=== PATIENT | male | born 1950 | race Caucasian/White ===

== ENCOUNTER 2016-06-20 13:23 | Day surgery (SDC) | payer OTHER ==
[2016-06-20] MEDS ORDERED: fentaNYL 100 MCG/2 ML INJ IVP ONE (13:27)
[2016-06-20] MEDS ORDERED: MIDAZOLAM 2 MG/2 ML VIAL IVP ONE (13:27)
[2016-06-20] MEDS ORDERED: BENZOCAINE UNIT DOSE SPRAY HURRICAINE MM ONE (13:27)
[2016-06-20] MEDS ORDERED: NS 500 ML IV ONE (13:27)
[2016-06-20] MEDS ORDERED: PROPOFOL 200 MG/20 ML VIAL IVP ONE (13:27)
[2016-06-20 14:04] LABS: % IMMATURE GRANULYOCYTES 0.3 % (0.0-1.1); ABSOLUTE IMMATURE GRANULOCYTES 0.04 10^3/uL (0.00-0.10); ADD DIFF? NO; ADD MORPH? NO; ADD SCAN? NO; ATYPICAL LYMPHOCYTE FLAG 10 (0-99); FRAGMENT RBC FLAG 0 (0-99); HEMATOCRIT 51.7 % (40.0-51.0); LEFT SHIFT FLG 0 (0-99); LIPEMIA HEMOLYSIS FLAG 90 (0-99); MEAN CELL HEMOGLOBIN CONCENTR. 36.8 g/dL (32.4-36.7); MEAN CELL VOLUME 84.5 fL (81.5-99.8); MEAN PLATELET VOLUME 9.7 fL (8.7-11.7); PLATELET CLUMPS FLAG 10 (0-99); PLATELET COUNT 270 10^3/uL (150-400); RED BLOOD CELL COUNT 6.12 10^6/uL (4.40-6.38); RED CELL DISTRIBUTION WIDTH 13.2 % (11.5-15.2)
[2016-06-20 14:13] LABS: INR 1.15 (0.83-1.16); PROTIME(PATIENT) 14.6 SEC (12.0-15.0)
[2016-06-20 14:18] LABS: ANION GAP 14 mEq/L (8-16); CALCIUM 10.3 mg/dL (8.5-10.4); CARBON DIOXIDE 26 mEq/l (22-31); CHLORIDE 104 mEq/L (97-110); CREATININE 1.4 mg/dL (0.7-1.3); GLOMERULAR FILTRATION RATE 51; GLUCOSE 104 mg/dL (70-100); MAGNESIUM 2.4 mg/dL (1.6-2.3); POTASSIUM 4.2 mEq/L (3.5-5.2); SODIUM 144 mEq/L (134-144)
[2016-06-20 14:30] LABS: TROPONIN I < 0.012 ng/mL (0-0.034)
[2016-06-20] MEDS ORDERED: ATROPINE SULFATE 1 MG/10 ML SYR ONE (14:35)
[2016-06-20] MEDS ORDERED: LIDOCAINE 2% 100 MG/5 ML SYR ONE (15:14)
[2016-06-20] MEDS ORDERED: fentaNYL 100 MCG/2 ML INJ ONE (15:14)
[2016-06-20] MEDS ORDERED: PROPOFOL/EMULSION 500 MG/50 ML BOTTLE IV ONE (15:14)
--- NOTE | 2016-06-20 15:53 | CPEKG ---
Heart Rate: 83 RR Interval: 723 P-R Interval: 144 QRSD Interval: 92 QT Interval: 364 QTC Interval: 428 P Empire: 72 QRS Empire: 87 T Wave Empire: -2 EKG Severity - BORDERLINE ECG - EKG Impression: SINUS RHYTHM EKG Impression: PROBABLE LEFT ATRIAL ABNORMALITY EKG Impression: CONSIDER RIGHT VENTRICULAR HYPERTROPHY Electronically Signed By: Deng Pretty 20-Jun-2016 16:12:03
--- NOTE | 2016-06-20 15:57 | SUROPNOTE ---
[facility] Operative Report - Surgery Date of procedure: 06/20/16 Indication: This patient is a 66 year old man presenting with new onset atrial flutter, which was diagnosed incidentally in Dr. Dugan's office one week ago and is of unknown duration. He was placed on Eliquis and Toprol at that time. At his appointment with Dr. Velásquez today, EKG showed continued atrial flutter. He additionally reports symptoms which sound like paroxysmal nocturnal dyspnea and exertional chest discomfort with skiing. Troponin was negative and BNP was normal. Plan for transesophageal echocardiogram and probably cardioversion. Procedures performed: 1. Transesophageal echocardiogram 2. Cardioversion Description of procedure: Risks, benefits, and alternatives were discussed. Informed consent was obtained. Anesthesia was performed by Dr. Washington with propofol. Patient underwent transesophageal echocardiography which did not show evidence of interatrial or appendage thrombus. There was no evidence of thrombus. Ventricular function was normal. Patient received a 50 joule biphasic synchronized shock using hands-off pads, which converted him to atrial fibrillation. Patient then received a 200 joule biphasic synchronized shock using hands-off pads converting to sinus rhythm. Impression: 1. Successful cardioversion of atrial fibrillation to normal sinus rhythm. Plan: 1. Nuclear stress test 06/23/16 2. Clinical follow up 3. Continue anticoagulation with Eliquis Portions of this report were documented by [facility]. I have reviewed this report and agree with the documentation. Report scribed for Dr. Lacho Grover. Report scribed by Krystina Collier.
== END 2016-06-20 17:05 | disposition home or self-care (01) ==
LOC: FCATH 13:23
PROVIDERS: ATTEND Internal Medicine Interventional Cardiology
DX: I48.3 Typical atrial flutter (principal); Z79.01 Long term (current) use of anticoagulants; I10 Essential (primary) hypertension; R93.1 Abnormal findings on diagnostic imaging of heart and coronary circulation
CPT/HCPCS: J0461; J2001; J2704; J3010

== ENCOUNTER → 2017-03-27 | Outpatient (CLI) | payer OTHER | LOC: FIMAGING 13:52 | PROVIDERS: ATTEND Internal Medicine | DX: N20.0 Calculus of kidney (principal) ==